=== PATIENT | male | born 1960 | race Two or more races ===

== ENCOUNTER 2018-08-28 02:01 | Inpatient (IN) | payer OTHER ==
[~2018-08-28] VITALS: Ht 170.2 cm; Wt 76.2 kg
[2018-08-28 02:24] LABS: BASOPHILS % (AUTO) 0.4 % (0.0-2.0); EOSINOPHILS % (AUTO) 1.1 % (0.0-6.0); HEMATOCRIT 47 % (39-51); HEMOGLOBIN 15.7 g/dL (13.5-17.5); LYMPHOCYTES # (AUTO) 0.9 /CMM (0.8-4.8); LYMPHOCYTES % (AUTO) 12.2 % (20.0-44.0); MEAN CORPUSCULAR HGB CONC 34 g/dl (31.0-36.0); MEAN CORPUSCULAR VOLUME 92 fL (80-96); MONOCYTES # (AUTO) 0.7 /CMM (0.1-1.30); MONOCYTES % (AUTO) 9.2 % (2.0-12.0); NEUTROPHILS # (AUTO) 5.9 /CMM (1.8-8.9); NEUTROPHILS % (AUTO) 77.1 % (43.0-81.0); PLATELET COUNT (AUTO) 229 /CMM (150-450); WHITE BLOOD COUNT (AUTO) 7.7 K/uL (4.3-11.0)
[2018-08-28] MEDS ORDERED: NITROGLYCERIN PACKET 1 GM PACKET TD ONE (02:30)
[2018-08-28 02:41] LABS: CALCIUM, SERUM 9.3 mg/dL (8.5-10.1); CREATININE 1.3 mg/dL (0.6-1.3); POTASSIUM 4.5 mmol/L (3.5-5.1)
[2018-08-28] MEDS ORDERED: NITROGLYCERIN PACKET 1 GM PACKET ONE (02:44)
[2018-08-28 02:55] LABS: BILIRUBIN,DIRECT 0.1 mg/dL (0.0-0.2); BILIRUBIN,TOTAL 0.6 mg/dL (0.2-1.0)
[2018-08-28 02:56] LABS: ALBUMIN 3.6 g/dL (3.4-5.0); TOTAL PROTEIN, SERUM 6.8 g/dL (6.4-8.2)
[2018-08-28] MEDS ORDERED: ENOXAPARIN SODIUM 60 MG/0.6 ML DISP.SYRIN SQ ONE (03:00)
[2018-08-28] MEDS ORDERED: FUROSEMIDE 40 MG/4 ML VIAL IV ONE (03:00)
[2018-08-28] MEDS ORDERED: ENOXAPARIN SODIUM 80 MG/0.8 ML DISP.SYRIN SQ ONE (03:06)
[2018-08-28] MEDS ORDERED: FUROSEMIDE 40 MG/4 ML VIAL ONE (03:07)
[2018-08-28] MEDS ORDERED: METF-442 PO (03:44)
[2018-08-28] MEDS ORDERED: ASPI-1169 PO (03:44)
[2018-08-28] MEDS ORDERED: GLIP10TA11 PO (03:44)
[2018-08-28] MEDS ORDERED: [UNRECOGNIZED DRUG - OTHER] (03:44)
[2018-08-28] MEDS ORDERED: SITA100T PO (03:44)
[2018-08-28] MEDS ORDERED: Z GUARD REMEDY 2 OZ OINT TP PRN (04:00)
[2018-08-28] MEDS ORDERED: DEXTROSE 50%-WATER 50 ML DISP.SYRIN IV PRN (04:00)
[2018-08-28] MEDS ORDERED: INSULIN REGULAR, HUMAN 100 UNIT/ML 3 ML VIAL SQ PRN (04:00)
[2018-08-28] MEDS ORDERED: MORPHINE SULFATE INJ 2 MG/ML DISP.SYRIN IV PRN (04:00)
[2018-08-28] MEDS ORDERED: MAG HYDROX/AL HYDROX/SIMETH 30 ML UDC PO PRN (04:00)
[2018-08-28] MEDS ORDERED: HYDROCODONE/APAP 5/325MG 1 EACH TABLET PO PRN (04:00)
[2018-08-28] MEDS ORDERED: ACETAMINOPHEN 325 MG TABLET PO PRN (04:00)
[2018-08-28] MEDS ORDERED: ONDANSETRON HCL/PF 4 MG/2 ML VIAL IVP PRN (04:00)
[2018-08-28] MEDS ORDERED: MAGNESIUM HYDROXIDE 30 ML UDC PO PRN (04:00)
[2018-08-28 04:16] VITALS: BP 128/87
[2018-08-28] MEDS: BLOOD SUGAR DIAGNOSTIC 1 EACH STRIP IN SCH ×2 (07:52→12:32)
[2018-08-28 08:00] VITALS: BP 108/66
[2018-08-28] MEDS ORDERED: ASPIRIN 81 MG TAB.CHEW PO SCH ×2 (09:00→10:00)
[2018-08-28] MEDS ORDERED: ATORVASTATIN 40 MG TABLET PO SCH (10:00)
[2018-08-28 12:00] VITALS: BP 105/61
[2018-08-28] MEDS ORDERED: METOPROLOL TARTRATE 50 MG TABLET PO SCH (12:00)
[2018-08-28 12:23] VITALS: BP 105/61
[2018-08-28] MEDS ORDERED: IV 1/2NS 1000 ML 1,000 ML IV PRN (12:30)
[2018-08-28] MEDS ORDERED: ENOXAPARIN SODIUM 80 MG/0.8 ML DISP.SYRIN SQ SCH (15:00)
== END 2018-08-28 15:15 | disposition short-term general hospital (02) | DRG 280 ==
LOC: ER 02:04 → TELE-TD 03:40 → TELE1 10:04
PROVIDERS: ADMIT Student in an Organized Health Care Education/Training Program; ATTEND Student in an Organized Health Care Education/Training Program
DX: I21.4 Non-ST elevation (NSTEMI) myocardial infarction (principal); I50.33 Acute on chronic diastolic (congestive) heart failure; Z79.84 Long term (current) use of oral hypoglycemic drugs; E11.51 Type 2 diabetes mellitus with diabetic peripheral angiopathy without gangrene; E11.319 Type 2 diabetes mellitus with unspecified diabetic retinopathy without macular edema; F17.210 Nicotine dependence, cigarettes, uncomplicated; Z86.718 Personal history of other venous thrombosis and embolism; E11.65 Type 2 diabetes mellitus with hyperglycemia
CPT/HCPCS: 36415; 71045-TC; 80048-TC; 80076-TC; 82962-TC; 83880; 84484-TC; 85025-TC; 85378-TC; 87081-TC; 93307-TC; G0378; J1650; J1815; J1940; J3490

== ENCOUNTER 2020-09-08 09:30 | Emergency (ER) | payer MEDICAID, OTHER ==
[~2020-09-08] VITALS: Ht 170.2 cm; Wt 76.7 kg
[~2020-09-08 09:30] MED LIST: ASPI-1169 PO; GLIP10TA11 PO; METF-442 PO; SITA100T PO; [UNRECOGNIZED DRUG - OTHER]
--- NOTE | 2020-09-08 09:50 | NUR ---
[facility], C/O DIARRHEA WITH NAUSEA. PATIENT A/OX4, BREATHING EVEN AND UNLABORED, NO SOB NOTED.
[2020-09-08] MEDS ORDERED: ONDANSETRON HCL/PF 4 MG/2 ML VIAL ONE (10:00)
[2020-09-08] MEDS ORDERED: IV NS 0.9% 1,000 ML BAG IV ONE (10:00)
[2020-09-08] MEDS ORDERED: ONDANSETRON HCL/PF 4 MG/2 ML VIAL IVP ONE (10:00)
[2020-09-08 10:11] LABS: BASOPHILS % (AUTO) 0.1 % (0.0-2.0); EOSINOPHILS % (AUTO) 0.1 % (0.0-6.0); HEMATOCRIT 49 % (39-51); HEMOGLOBIN 16.6 g/dL (13.5-17.5); LYMPHOCYTES # (AUTO) 0.3 K/uL (0.8-4.8); MEAN CORPUSCULAR HGB CONC 34 g/dl (31.0-36.0); MEAN CORPUSCULAR VOLUME 96 fL (80-96); MONOCYTES % (AUTO) 12.3 % (2.0-12.0); NEUTROPHILS # (AUTO) 7.1 K/uL (1.8-8.9); NEUTROPHILS % (AUTO) 83.5 % (43.0-81.0); PLATELET COUNT (AUTO) 188 K/uL (150-450); RED BLOOD CELL COUNT(AUTO) 5.15 MIL/uL (4.5-6.0); WHITE BLOOD COUNT (AUTO) 8.5 K/uL (4.3-11.0)
[2020-09-08 10:46] LABS: ALBUMIN 3.7 g/dL (3.4-5.0); BILIRUBIN,DIRECT 0.1 mg/dL (0.0-0.2); BILIRUBIN,TOTAL 0.7 mg/dL (0.2-1.0); TOTAL PROTEIN, SERUM 7.5 g/dL (6.4-8.2)
[2020-09-08 10:47] LABS: CREATININE 1.2 mg/dL (0.6-1.3); POTASSIUM 4.8 mmol/L (3.5-5.1)
[2020-09-08] MEDS ORDERED: ACETAMINOPHEN ES 500 MG TABLET ONE (11:11)
--- NOTE | 2020-09-08 11:15 | NUR ---
COVID SWAB SENT TO LAB.
[2020-09-08] MEDS ORDERED: ACETAMINOPHEN ES 500 MG TABLET PO ONE (11:30)
[2020-09-08 11:31] VITALS: BP 115/69
--- NOTE | 2020-09-08 11:31 | NUR ---
Patient a/ox4, breathing even and unlabored, no sob noted, needs attended. Ambulatory with steady gait. IV removed. Catheter intact and site benign. Pressure and 4x4 applied to site. No bleeding noted.Patient discharged to home in stable condition. Written and verbal after care instructions given. Patient verbalizes understanding of instruction.
== END 2020-09-08 11:31 | disposition home or self-care (01) ==
LOC: ER 10:00
DX: R19.7 Diarrhea, unspecified (principal); R09.81 Nasal congestion; Z20.822 Contact with and (suspected) exposure to COVID-19; E11.65 Type 2 diabetes mellitus with hyperglycemia; Z79.84 Long term (current) use of oral hypoglycemic drugs; Z79.82 Long term (current) use of aspirin; Z86.718 Personal history of other venous thrombosis and embolism; R52 Pain, unspecified; F17.200 Nicotine dependence, unspecified, uncomplicated
CPT/HCPCS: 36415; 80048; 80076; 83690; 85025; 96361; 96374; 99283; C9803; J2405; J7030; U0003